=== PATIENT | male | born 1985 | race African-American/Black ===

== ENCOUNTER 2017-06-17 20:31 | Emergency (ER) | payer OTHER ==
[~2017-06-17] VITALS: Ht 188 cm; Wt 76.0 kg
[2017-06-17 20:34] VITALS: BP 139/77; PULSE 68; RESP 16; TEMP 96.7; O2SAT 100
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
[2017-06-17] MEDS ORDERED: IOHEXOL 350 MG/ML 10 ML VIAL (for RAD DIAG) IVCONTRAST ONE (21:48)
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
[2017-06-17] MEDS ORDERED: KETOROLAC TROMETHAMINE 30 MG/ML (IVP) VIAL IV PUSH ONE (22:00)
[2017-06-17 22:07] LABS: AUTOMATED NEUTROPHIL # 3.8 TH/MM3 (1.8-7.7); BASOPHIL % 0.7 % (0.0-2.0); EOSINOPHIL # 0.1 TH/MM3 (0-0.4); EOSINOPHIL % 1.1 % (0.0-4.0); HEMATOCRIT 38.5 % (39.0-51.0); HEMOGLOBIN 13.6 GM/DL (13.0-17.0); LYMPH % 28.4 % (9.0-44.0); LYMPHOCYTE # 1.8 TH/MM3 (1.0-4.8); MEAN CELL VOLUME 90.2 FL (80.0-100.0); MEAN CORPUSCULAR HEMOGLOBIN 31.9 PG (27.0-34.0); MEAN CORPUSCULAR HGB CONC 35.3 % (32.0-36.0); MEAN PLATELET VOLUME 10.1 FL (7.0-11.0); MONOCYTE # 0.6 TH/MM3 (0-0.9); NEUT % 59.8 % (16.0-70.0); PLATELET COUNT 132 TH/MM3 (150-450); RED BLOOD COUNT 4.26 MIL/MM3 (4.50-5.90); RED CELL DISTRIBUTION WIDTH 14.5 % (11.6-17.2); WHITE BLOOD COUNT 6.3 TH/MM3 (4.0-11.0)
[2017-06-17 22:24] LABS: BICARBONATE 28.5 MEQ/L (21.0-32.0); CALCIUM 8.6 MG/DL (8.5-10.1); CREATININE 1.14 MG/DL (0.60-1.30)
[2017-06-17 22:48] LABS: INTERNATIONAL NORMALIZED RATIO 1.1 RATIO
== END 2017-06-17 22:54 | disposition home or self-care (01) ==
LOC: NEPE 20:31
DX: S16.1XXA Strain of muscle, fascia and tendon at neck level, initial encounter (principal); S46.911A Strain of unspecified muscle, fascia and tendon at shoulder and upper arm level, right arm, initial encounter; S83.91XA Sprain of unspecified site of right knee, initial encounter; R51 Headache; Z72.0 Tobacco use; V43.62XA Car passenger injured in collision with other type car in traffic accident, initial encounter
CPT/HCPCS: 70450; 71260; 72125; 73030; 73564; 80048; 85025; 85610; 85730; 96374; 99285; J1885; Q9967

== ENCOUNTER 2017-08-15 00:39 | Emergency (ER) | payer SELFPAY ==
[~2017-08-15] VITALS: Ht 190.5 cm; Wt 75.0 kg
[2017-08-15 00:44] VITALS: BP 139/67; PULSE 53; RESP 18; TEMP 98.4; O2SAT 100
[2017-08-15] MEDS ORDERED: PERI0.126 SWISH-SPIT (07:55)
[2017-08-15] MEDS ORDERED: CLIN150C14 PO (07:55)
[2017-08-15] MEDS ORDERED: PRED-503 PO (07:55)
[2017-08-15] MEDS ORDERED: IBUP1TAB7 PO (07:55)
[2017-08-15] MEDS ORDERED: TRAM50TA PO (07:55)
== END 2017-08-15 03:10 | disposition left against medical advice (07) ==
LOC: NED 00:39
DX: R68.89 Other general symptoms and signs (principal)
CPT/HCPCS: 99281

== ENCOUNTER 2017-08-15 07:25 | Emergency (ER) | payer SELFPAY ==
[~2017-08-15] VITALS: Ht 190.5 cm; Wt 75.0 kg
[2017-08-15 07:35] VITALS: BP 126/60; PULSE 63; RESP 16; TEMP 98.8
[2017-08-15] MEDS ORDERED: IBUP1TAB7 PO (07:55)
[2017-08-15] MEDS ORDERED: TRAM50TA PO (07:55)
[2017-08-15] MEDS ORDERED: CLIN150C14 PO (07:55)
[2017-08-15] MEDS ORDERED: PERI0.126 SWISH-SPIT (07:55)
[2017-08-15] MEDS ORDERED: PRED-503 PO (07:55)
--- NOTE | 2017-08-15 07:55 | PD ---
HPI Chief Complaint: Oral / Dental Pain or Problem Time Seen by Provider: 07:43 Travel History International Travel<30 days: No Contact w/Intl Traveler<30days: No Traveled to known affect area: No History of Present Illness HPI 31-year-old male presents to the emergency Department with complaint of right lower tooth pain and facial swelling 2 days. Denies fever, vomiting. Denies sore throat, difficulty swallowing, unusual drooling. Rates pain 10/10. Has taken ibuprofen and aspirin for symptom management. Describes as a pressure and throbbing sensation. On suddenly aggravated. No known relieving factors. Says he has a dentist he can follow-up with. No known allergies. No primary care provider. Denies significant past medical history. Has no other medical complaints. No other modifying factors or associated signs and symptoms. PFSH Past Medical History Diminished Hearing: No Immunizations Current: Yes Social History Alcohol Use: No Tobacco Use: Yes (1PPD) Substance Use: No Allergies-Medications (Allergen,Severity, Reaction): Coded Allergies: No Known Allergies (Unverified , 08/15/17) Reported Meds & Prescriptions Reported Meds & Active Scripts Active Deltasone (Prednisone) 20 Mg Tab 40 Mg PO DAILY 4 Days start 08/16/2017 Clindamycin (Clindamycin HCl) 150 Mg Cap 450 Mg PO Q6H 10 Days Peridex Liq (Chlorhexidine Gluconate (Mouth) Liq) 0.12% Soln 15 Ml SWISH-SPIT BID 10 Days Tramadol (Tramadol HCl) 50 Mg Tab 50 Mg PO Q4H PRN Ibuprofen 800 Mg Tab 800 Mg PO Q6HR PRN Review of Systems Except as stated in HPI: all other systems reviewed are Neg Physical Exam Narrative GENERAL: Well-nourished, well-developed black male patient, in no acute distress ; afebrile, nontoxic-appearing SKIN: Warm and dry. HEAD: Atraumatic. Normocephalic. Right lower facial edema; without erythema; with tenderness on palpation. No lymphadenopathy. EYES: Pupils equal and round. No scleral icterus. No injection or drainage. ENT: Mucosa pink and moist. No erythema or exudates. No uvular edema. No uvular , palatal, or tonsillar deviation. Airway patent. EARS: Bilateral pinnae and external canals appear within normal limits. Bilateral tympanic membranes without erythema, dullness or perforation. MOUTH: Mucous membranes moist, no lesions, tongue and gums appear normal. Poor dentition throughout. Right lower back dentition with 3 teeth that are significantly decayed and with large cavity. Gingiva surrounding the teeth are minimally edematous, but without fluctuance; without erythema, drainage. No obvious abscess noted. NECK: Trachea midline. No lymphadenopathy. CARDIOVASCULAR: Regular rate. RESPIRATORY: No accessory muscle use. GASTROINTESTINAL: Flat. MUSCULOSKELETAL: No obvious deformities. No clubbing. No cyanosis. No edema. NEUROLOGICAL: Awake and alert. Oriented 3. No obvious cranial nerve deficits. Motor grossly within normal limits. Normal speech. PSYCHIATRIC: Appropriate mood and affect; insight and judgment normal. Data Data Last Documented VS Vital Signs Date Time Temp Pulse Resp B/P (MAP) Pulse Ox O2 Delivery O2 Flow Rate FiO2 08/15/17 07:35 98.8 63 16 126/60 (82) Orders Orders Clindamycin Inj (Cleocin Inj) (08/15/17 08:00) Prednisone (Deltasone) (08/15/17 08:00) Ketorolac Inj (Toradol Inj) (08/15/17 08:00) Ed Discharge Order (08/15/17 07:55) [facility] Medical Decision Making Medical Screen Exam Complete: Yes Emergency Medical Condition: Yes Medical Record Reviewed: Yes Differential Diagnosis Dental cavities, dental abscess, gingivitis Narrative Course 31-year-old male with right lower dental abscess. There is no fluctuance to the gingiva to perform incision and drainage. Right facial edema. Patient is afebrile and nontoxic-appearing. Denies fevers or vomiting. Patient has a dentist he can follow up with outpatient. Clindamycin IM, Deltasone, Toradol ordered. Patient provided emergency dental information sheet for follow-up. Clindamycin, Deltasone, ibuprofen, tramadol, Peridex mouth rinse prescribed for home. Instructed patient to follow up with primary care provider. Patient verbalizes understanding and agreement with treatment plan. Patient is medically cleared and stable for discharge. Discussed reasons to return to the emergency department. Patient agrees with treatment plan. The patients vital signs are stable and the patient is stable for outpatient follow-up and treatment. Patient discharged home, stable and in no acute distress. Diagnosis Primary Impression: Dental abscess Referrals: [facility] Dentist Primary Care Physician Patient Instructions: Dental Abscess (ED), General Instructions Additional Instructions: Complete full course of antibiotics Ibuprofen or Tylenol as directed and as needed to reduce pain and inflammation Use Peridex as directed for oral hygiene Warm or cool compresses to the affected area Follow-up with dentist Follow-up with primary care provider Return to emergency department immediately with worsening of symptoms Med/Other Pt SpecificInfo: Prescription(s) given Scripts Prednisone (Deltasone) 20 Mg Tab 40 MG PO DAILY for 4 Days, #8 TAB 0 Refills start 08/16/2017 Prov: Shayna Rodriguez 08/15/17 Clindamycin (Clindamycin) 150 Mg Cap 450 MG PO Q6H for Infection for 10 Days, #120 CAP 0 Refills Prov: Shayna Rodriguez 08/15/17 Chlorhexidine Gluconate (Mouth) Liq (Peridex Liq) 0.12% Soln 15 ML SWISH-SPIT BID for 10 Days, #300 ML 0 Refills Prov: Shayna Rodriguez 08/15/17 Tramadol (Tramadol) 50 Mg Tab 50 MG PO Q4H Y for PAIN, #10 TAB 0 Refills Prov: Shayna Rodriguez 08/15/17 Ibuprofen (Ibuprofen) 800 Mg Tab 800 MG PO Q6HR Y for PAIN, #30 TAB 0 Refills Prov: Shayna Rodriguez 08/15/17 Disposition: 01 DISCHARGE HOME Condition: Stable Shayna Rodriguez Aug 15, 2017 07:55
[2017-08-15] MEDS ORDERED: predniSONE 20 MG TAB PO ONE (08:00)
[2017-08-15] MEDS ORDERED: CLINDAMYCIN PHOS 600 MG/4 ML VIAL IM ONE (08:00)
[2017-08-15] MEDS ORDERED: KETOROLAC TROMETHAMINE 60 MG/2 ML (IM) VIAL IM ONE (08:00)
== END 2017-08-15 08:14 | disposition home or self-care (01) ==
LOC: NEPD 07:25
DX: K04.7 Periapical abscess without sinus (principal); F17.210 Nicotine dependence, cigarettes, uncomplicated
CPT/HCPCS: 96372; 99283; J1885; J7512